=== PATIENT | male | born 1990 | race Caucasian/White ===

== ENCOUNTER 2017-05-09 19:48 | Emergency (ER) | payer BC ==
[2017-05-09] MEDS ORDERED: Amoxicillin 500 MG Cap PO ONE (20:15)
[2017-05-09] MEDS ORDERED: oxyCODONE ER 10 MG TAB.ER PO ONE (20:16)
[2017-05-09] MEDS ORDERED: Acetaminophen/oxyCODONE 325-5 MG Tab PO ONE (20:42)
--- NOTE | 2017-05-09 21:07 | EDM.PDOC ---
ED HPI GENERAL MEDICAL PROBLEM - General Chief Complaint: General Stated Complaint: TOOTHACHE Time Seen by Provider: 05/09/17 20:00 Source of Information: Reports: Patient, Family History Limitations: Reports: No Limitations - History of Present Illness INITIAL COMMENTS - FREE TEXT/NARRATIVE: Patient is a 26 year old man with a fractured abscessed left upper tooth for the last few months that over the weekend has become very sore and is causing swelling in the left sinus. No fever or chills and he has had this happen before with other teeth. He is scheduled to have the tooth pulled towards the end of this month. It does hurt a lot and he needs an antibiotic to treat the abscess. Onset: Gradual Duration: Week(s): (8), Getting Worse Location: Reports: Face (Left upper tooth is fractured and sore. 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 Pain Score (Numeric/FACES): 8 - Related Data Allergies Allergy/AdvReac Type Severity Reaction Status Date / Time clarithromycin [From Biaxin] Allergy Cannot Verified 07/29/14 15:55 Remember Home Meds: Home Meds Albuterol Sulfate [Albuterol Sulfate HFA] 2 puff Q4H PRN 07/29/14 [History] Amoxicillin 500 mg PO TID 10 Days #30 capsule 05/09/17 [Rx] Past Medical History Respiratory History: Reports: Asthma Gastrointestinal History: Reports: GERD Musculoskeletal History: Reports: Back Pain, Chronic Endocrine/Metabolic History: Reports: Obesity/BMI 30+ - Infectious Disease History Infectious Disease History: Reports: Chicken Pox, Shingles - Past Surgical History HEENT Surgical History: Reports: Myringotomy w Tube(s), Oral Surgery GI Surgical History: Reports: Hernia, Inguinal Other GI Surgeries/Procedures: L inguinal hernia repair Social & Family History - Family History Family Medical History: Noncontributory - Tobacco Use Smoking Status *Q: Current Every Day Smoker Years of Tobacco use: 14 Packs/Tins Daily: 0.5 - Caffeine Use Caffeine Use: Reports: Soda - Alcohol Use Days Per Week of Alcohol Use: 3 Number of Drinks Per Day: 10 Total Drinks Per Week: 30 - Recreational Drug Use Recreational Drug Use: Yes Drug Use in Last 12 Months: No Recreational Drug Type: Reports: Marijuana/Hashish Recreational Drug Use Frequency: Not Used In Over 6 Months ED ROS GENERAL - Review of Systems Review Of Systems: See Below Constitutional: Reports: Other (He is having a hard time sleeping due to pain.) HEENT: Reports: Sinus Problem, Other (Left upper tooth pain.) Respiratory: Reports: No Symptoms Cardiovascular: Reports: No Symptoms Endocrine: Reports: No Symptoms GI/Abdominal: Reports: No Symptoms : Reports: No Symptoms Musculoskeletal: Reports: No Symptoms Skin: Reports: No Symptoms Neurological: Reports: No Symptoms Psychiatric: Reports: No Symptoms ED EXAM, GENERAL - Physical Exam Exam: See Below Exam Limited By: No Limitations General Appearance: Alert Eye Exam: Bilateral Eye: EOMI, Normal Fundi, Normal Inspection, PERRL Ears: Normal External Exam Ear Exam: Bilateral Ear: Auricle Normal, Canal Normal, TM normal Nose: Normal Inspection, Normal Mucosa, No Blood Throat/Mouth: Other (Left upper tooth is broken and sore. ) Head: Facial Swelling (Over left maxillary sinus.) Neck: Normal Inspection, Supple, Non-Tender, Full Range of Motion Respiratory/Chest: No Respiratory Distress, Lungs Clear, Normal Breath Sounds, No Accessory Muscle Use, Chest Non-Tender Cardiovascular: Normal Peripheral Pulses, Regular Rate, Rhythm, No Edema, No Gallop, No JVD, No Murmur, No Rub GI/Abdominal: Normal Bowel Sounds, Soft, Non-Tender, No Organomegaly, No Distention, No Abnormal Bruit, No Mass Extremities: Normal Inspection, Normal Range of Motion, Non-Tender, Normal Capillary Refill, No Pedal Edema Neurological: Alert, Oriented, CN II-XII Intact, Normal Cognition, Normal Gait, Normal Reflexes, No Motor/Sensory Deficits Psychiatric: Normal Affect, Normal Mood Skin Exam: Warm, Dry, Intact, Normal Color, No Rash Course - Vital Signs Text/Narrative:: Patient had an uneventful ED course. He was given 2, 5/325 mg Percocet and 500 mg of Amoxicillin and he felt better. He will take Amoxicillin 500 mg po tid x 10 days, #30, Ibuprofen 800 mg po q 6 hours, Tylenol 500 mg po q 4 hours and will see his Dentist or Oral Surgeon JIM to get the abscessed tooth removed. Last Recorded V/S: Last Vital Signs Temp 36.5 C 05/09/17 19:51 Pulse 112 H 05/09/17 19:51 Resp 18 05/09/17 19:51 BP 142/93 H 05/09/17 19:51 Pulse Ox 99 05/09/17 19:51 - Orders/Labs/Meds Meds: Medications Discontinued Medications Generic Name Dose Route Start Last Admin Trade Name Maryam PRN Reason Stop Dose Admin Amoxicillin 500 mg 05/09/17 20:15 05/09/17 20:53 Amoxil PO 05/09/17 20:16 500 mg ONETIME ONE Administration Oxycodone HCl 10 mg 05/09/17 20:16 05/09/17 20:53 Oxycontin PO 05/09/17 20:17 Not Given ONETIME ONE Oxycodone/Acetaminophen 2 tab 05/09/17 20:42 05/09/17 20:52 Percocet 325-5 Mg PO 05/09/17 20:43 2 tab ONETIME ONE Administration Departure - Departure Time of Disposition: 21:12 Disposition: Home, Self-Care 01 Condition: Good Clinical Impression: Abscess of apex of dental root complicating chronic inflammation - Discharge Information Prescriptions: Amoxicillin 500 mg PO TID 10 Days #30 capsule Referrals: PCP,None [Primary Care Provider] -
[2017-05-09 21:25] VITALS: BP 134/78
== END 2017-05-09 21:15 | disposition home or self-care (01) ==
LOC: FB.ED 19:48
DX: K04.7 Periapical abscess without sinus (principal); E66.9 Obesity, unspecified; F17.210 Nicotine dependence, cigarettes, uncomplicated; Z88.8 Allergy status to other drugs, medicaments and biological substances
CPT/HCPCS: 99283; A9270

== ENCOUNTER 2018-07-31 00:12 | Emergency (ER) | payer BC ==
[2018-07-31] MEDS ORDERED: Ciprofloxacin 500 MG Tab PO ONE (00:30)
[2018-07-31] MEDS ORDERED: Ketorolac 60 MG/2 ML SDV IM ONE (00:30)
--- NOTE | 2018-07-31 00:36 | EDM.PDOC ---
ED HPI GENERAL MEDICAL PROBLEM - General Stated Complaint: EAR ACHE Time Seen by Provider: 07/31/18 00:15 Source of Information: Reports: Patient, Family History Limitations: Reports: No Limitations - History of Present Illness INITIAL COMMENTS - FREE TEXT/NARRATIVE: c/o right ear pain pt has had cold, cough and congestion for one wk, no f/c/d tonight he developed R ear pain 3 hours ago that has gotten worse, has pain when he touches ear had OM and tubes as a child not working today, here with sig other - Related Data Allergies Allergy/AdvReac Type Severity Reaction Status Date / Time clarithromycin [From Biaxin] Allergy Cannot Verified 07/31/18 00:31 Remember Home Meds: Home Meds Albuterol Sulfate [Albuterol Sulfate HFA] 2 puff Q4H PRN 07/29/14 [History] Amoxicillin 500 mg PO TID 10 Days #30 capsule 05/09/17 [Rx] Ciprofloxacin HCl [Cipro] 500 mg PO BID #14 tablet 07/31/18 [Rx] Hydrocort/Neomycin/Polymyxin B [Cortisporin Otic Soln] 10 ml .XX QID #1 bottle 07/31/18 [Rx] Past Medical History Respiratory History: Reports: Asthma Gastrointestinal History: Reports: GERD Musculoskeletal History: Reports: Back Pain, Chronic Endocrine/Metabolic History: Reports: Obesity/BMI 30+ - Infectious Disease History Infectious Disease History: Reports: Chicken Pox, Shingles - Past Surgical History HEENT Surgical History: Reports: Myringotomy w Tube(s), Oral Surgery GI Surgical History: Reports: Hernia, Inguinal Other GI Surgeries/Procedures: L inguinal hernia repair Social & Family History - Family History Family Medical History: Noncontributory - Caffeine Use Caffeine Use: Reports: Soda ED ROS ENT - Review of Systems Review Of Systems: See Below Constitutional: Reports: No Symptoms HEENT: Reports: Ear Pain, Rhinitis Respiratory: Reports: Cough Endocrine: Reports: No Symptoms GI/Abdominal: Reports: No Symptoms : Reports: No Symptoms Musculoskeletal: Reports: No Symptoms Skin: Reports: No Symptoms Neurological: Reports: No Symptoms Psychiatric: Reports: No Symptoms Hematologic/Lymphatic: Reports: No Symptoms Immunologic: Reports: No Symptoms ED EXAM, ENT - Physical Exam Exam: See Below Exam Limited By: No Limitations General Appearance: Alert, WD/WN, Mild Distress, Other (cooperative, nontoxic, leaning forward, appearing mildy uncomfortable) Eye Exam: Bilateral Eye: Conjunctival Injection Ears: Other (TMs wnl b/l, 60% swell of R ear canal inferiorly without exudate or red, mild tender on tug pinna and tragus on R, no LNs b/l) Nose: Other (30% swell b/l with 1+ clear d/c b/l) Mouth/Throat: Normal Inspection, Normal Gums, Normal Lips, Normal Oropharynx, Normal Teeth Head: Atraumatic, Normocephalic Neck: Normal Inspection, Supple, Non-Tender, Full Range of Motion. No: Lymphadenopathy (R), Lymphadenopathy (L) Respiratory/Chest: No Respiratory Distress, Lungs Clear, Normal Breath Sounds, No Accessory Muscle Use, Chest Non-Tender Cardiovascular: Regular Rate, Rhythm, No Edema, No Murmur Extremities: Normal Inspection, Normal Range of Motion, Non-Tender, No Pedal Edema Neurological: Alert, Oriented, CN II-XII Intact, Normal Cognition Psychiatric: Normal Affect Skin: Warm, Dry, Intact, Normal Color, No Rash Lymphatic: No Adenopathy Course - Orders/Labs/Meds Orders: Active Orders 24 hr Category Date Time Status Ciprofloxacin [Ciprofloxacin HCl] Med 07/31/18 00:30 Once 500 mg PO ONETIME ONE Ketorolac [Toradol] Med 07/31/18 00:30 Once 60 mg IM ONETIME ONE Departure - Departure Time of Disposition: 00:31 Disposition: Home, Self-Care 01 Condition: Good Clinical Impression: Otitis externa - Discharge Information *PRESCRIPTION DRUG MONITORING PROGRAM REVIEWED*: Not Applicable *COPY OF PRESCRIPTION DRUG MONITORING REPORT IN PATIENT BERTIN: Not Applicable Prescriptions: Ciprofloxacin HCl [Cipro] 500 mg PO BID #14 tablet Hydrocort/Neomycin/Polymyxin B [Cortisporin Otic Soln] 10 ml .XX QID #1 bottle Instructions: Otitis Externa Referrals: PCP,None [Primary Care Provider] - Additional Instructions: For infection, take ciprofloxacin 500 mg 1 tab 2 times a day for 7 days. For infection, take Cortisporin Otic Solution 3 drops in right ear canal 4 times a day for 7 days. For pain, take ibuprofen 200 mg 3 tabs and acetaminophen 500 mg 2 tabs 4 times a day for 1-2 days, longer if needed. For pain, may use 3 drops of ice water in the right ear canal every hour as needed. If feeling better, see your doctor in one week. If not feeling much better in 2 days, see your doctor or return to ED. Call your Physician or Return to Emergency Department if: * Your condition worsens in any way. * You develop fever greater than 100.4. * You have vomitting that does not stop with medications. * You have pain that is not controlled with medications. - My Orders Last 24 Hours: My Active Orders 07/31/18 00:30 Ciprofloxacin [Ciprofloxacin HCl] 500 mg PO ONETIME ONE Ketorolac [Toradol] 60 mg IM ONETIME ONE - Assessment/Plan Last 24 Hours: My Active Orders 07/31/18 00:30 Ciprofloxacin [Ciprofloxacin HCl] 500 mg PO ONETIME ONE Ketorolac [Toradol] 60 mg IM ONETIME ONE
[2018-07-31 02:15] VITALS: BP 133/87
== END 2018-07-31 00:55 | disposition home or self-care (01) ==
LOC: FB.ED 00:12
DX: H60.91 Unspecified otitis externa, right ear (principal); J45.909 Unspecified asthma, uncomplicated; K21.9 Gastro-esophageal reflux disease without esophagitis; Z79.899 Other long term (current) drug therapy; Z88.1 Allergy status to other antibiotic agents
CPT/HCPCS: 96372; 99282; A9270; J1885

== ENCOUNTER 2019-11-20 04:19 | Emergency (ER) | payer BC ==
[2019-11-20] MEDS ORDERED: Ketorolac 30 MG/ML SDV IVPUSH ONE (05:13)
[2019-11-20] MEDS ORDERED: Sodium Chloride 0.9% 1,000 ML IV ONE (05:13)
--- NOTE | 2019-11-20 05:16 | EDM.PDOC ---
ED HPI GENERAL MEDICAL PROBLEM - General Chief Complaint: Abdominal Pain Stated Complaint: ABDOMINAL PAIN Time Seen by Provider: 11/20/19 04:35 Source of Information: Reports: Patient History Limitations: Reports: No Limitations - History of Present Illness INITIAL COMMENTS - FREE TEXT/NARRATIVE: c/o pain and RUQ x 8h pt bought oil and drenched his vegetables with it last night, at 8p he had pain in his RUQ that has continued not much help from APAP and ibuprofen pain 4/10 when sitting, increase to 8-9/10 when he takes a deep breath or twists has developed pain in his R shoulder as well no n/v, no f/c/d lost his job 2w ago, no alc however, smokes THC daily only med is alb hfa which he has run out off he had one GB attack several years ago, given pain meds in ED and pain went away and never had a reoccurrence until now he indicates pain is localized at Gavin's point, says it hurts when he presses there has a 5 month old child no prior abd surgery 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 11/20/19 [Rx] Past Medical History Respiratory History: Reports: Asthma, Sleep Apnea Gastrointestinal History: Reports: GERD Musculoskeletal History: Reports: Back Pain, Chronic Psychiatric History: Reports: Anxiety, Depression Endocrine/Metabolic History: Reports: Obesity/BMI 30+ - Infectious Disease History Infectious Disease History: Reports: Chicken Pox - Past Surgical History HEENT Surgical History: Reports: Myringotomy w Tube(s), Oral Surgery GI Surgical History: Reports: Hernia, Inguinal Other GI Surgeries/Procedures: L inguinal hernia repair Social & Family History - Family History Family Medical History: Noncontributory - Tobacco Use Smoking Status *Q: Current Every Day Smoker Years of Tobacco use: 16 Packs/Tins Daily: 0.5 - Caffeine Use Caffeine Use: Reports: Soda - Recreational Drug Use Recreational Drug Use: Yes Recreational Drug Type: Reports: Marijuana/Hashish Recreational Drug Use Frequency: Daily ED ROS GENERAL - Review of Systems Review Of Systems: See Below Constitutional: Reports: No Symptoms HEENT: Reports: No Symptoms Respiratory: Reports: No Symptoms Cardiovascular: Reports: No Symptoms Endocrine: Reports: No Symptoms GI/Abdominal: Reports: Abdominal Pain. Denies: Constipation, Diarrhea, Nausea, Vomiting : Reports: No Symptoms Musculoskeletal: Reports: No Symptoms Skin: Reports: No Symptoms Neurological: Reports: No Symptoms Psychiatric: Reports: No Symptoms Hematologic/Lymphatic: Reports: No Symptoms Immunologic: Reports: No Symptoms ED EXAM, GENERAL - Physical Exam Exam: See Below Exam Limited By: No Limitations General Appearance: Alert, WD/WN, No Apparent Distress Nose: Normal Inspection, Normal Mucosa, No Blood Throat/Mouth: Normal Inspection, Normal Lips, No Airway Compromise Head: Atraumatic, Normocephalic Neck: Normal Inspection, Supple, Non-Tender, Full Range of Motion Respiratory/Chest: No Respiratory Distress, Lungs Clear, Normal Breath Sounds, No Accessory Muscle Use, Chest Non-Tender Cardiovascular: Regular Rate, Rhythm, No Edema, No Gallop, No Murmur, No Rub GI/Abdominal: Normal Bowel Sounds, Soft, No Distention, Other (1-2+ tender at Gavin's point, on palpating epigastrium there is tenderness at Gavin's point, takes shallow breaths to prevent pain in RUQ) Back Exam: Normal Inspection, Full Range of Motion. No: CVA Tenderness (R), CVA Tenderness (L) Extremities: Normal Inspection, Normal Range of Motion, Non-Tender, No Pedal Edema Neurological: Alert, Oriented, CN II-XII Intact, Normal Cognition, No Motor/Sensory Deficits Psychiatric: Normal Affect Skin Exam: Warm, Dry, Intact, Normal Color, No Rash Lymphatic: No Adenopathy Course - Vital Signs Last Recorded V/S: Last Vital Signs Temp 36.7 C 11/20/19 04:25 Pulse 71 11/20/19 04:25 Resp 18 11/20/19 04:25 BP 152/79 H 11/20/19 04:25 Pulse Ox 99 11/20/19 04:25 - Orders/Labs/Meds Orders: Active Orders 24 hr Category Date Time Status Abdomen Pelvis w Cont [CT] Stat Exams 11/20/19 05:10 Ordered Labs: Laboratory Tests 11/20/19 11/20/19 11/20/19 Range/Units 05:20 05:30 05:30 WBC 10.9 (4.5-12.0) X10-3/uL RBC 5.14 (4.30-5.75) x10(6)uL Hgb 15.2 (13.5-17.8) g/dL Hct 45.5 (30.0-51.3) % MCV 88.5 (80-96) fL MCH 29.5 (27.7-33.6) pg MCHC 33.4 (32.2-35.4) g/dL RDW 11.8 (11.5-15.5) % Plt Count 200 (125-369) X10(3)uL MPV 8.4 (7.4-10.4) fL Neut % (Auto) 57.3 (46-82) % Lymph % (Auto) 31.6 (13-37) % [place] % (Auto) 8.2 (4-12) % Eos % (Auto) 2 (1.0-5.0) % Baso % (Auto) 1 (0-2) % Neut # (Auto) 6.1 (1.6-8.3) # Lymph # (Auto) 3.5 (0.6-5.0) # Oxford # (Auto) 0.9 (0.0-1.3) # Eos # (Auto) 0.3 (0.0-0.8) # Baso # (Auto) 0.1 (0.0-0.2) # Sodium 139 (135-145) mmol/L Potassium 3.9 (3.5-5.3) mmol/L Chloride 103 (100-110) mmol/L Carbon Dioxide 29 (21-32) mmol/L BUN 17 (7-18) mg/dL Creatinine 0.9 (0.70-1.30) mg/dL Est Cr Clr Drug Dosing 143.44 mL/min Estimated GFR (MDRD) > 60 (>60) BUN/Creatinine Ratio 18.9 (9-20) Glucose 110 (80-116) mg/dL Calcium 8.8 (8.6-10.2) mg/dL Total Bilirubin 0.5 (0.1-1.3) mg/dL AST 17 (5-25) IU/L ALT 25 (12-36) U/L Alkaline Phosphatase 100 (56-112) IU/L C-Reactive Protein (0.5-0.9) mg/dL Total Protein 7.5 (6.0-8.0) g/dL Albumin 4.0 (3.5-5.2) g/dL Globulin 3.5 g/dL Albumin/Globulin Ratio 1.1 Lipase (73-393) U/L Urine Color Yellow (YELLOW) Urine Appearance Clear (CLEAR) Urine pH 5.0 (5.0-6.5) Ur Specific Mena 1.020 (1.010-1.025) Urine Protein Negative (NEGATIVE) mg/dL Urine Glucose (UA) Normal (NORMAL) mg/dL Urine Ketones Negative (NEGATIVE) mg/dL Urine Occult Blood Negative (NEGATIVE) Urine Nitrite Negative (NEGATIVE) Urine Bilirubin Negative (NEGATIVE) Urine Urobilinogen Normal (NEGATIVE) mg/dL Ur Leukocyte Esterase Negative (NEGATIVE) Urine RBC 0-5 (0-5) Urine WBC 0-5 (0-5) Ur Squamous Epith Cells Rare (NS,R,O) Urine Bacteria Rare H (NS) 11/20/19 Range/Units 05:30 WBC (4.5-12.0) X10-3/uL RBC (4.30-5.75) x10(6)uL Hgb (13.5-17.8) g/dL Hct (30.0-51.3) % MCV (80-96) fL MCH (27.7-33.6) pg MCHC (32.2-35.4) g/dL RDW (11.5-15.5) % Plt Count (125-369) X10(3)uL MPV (7.4-10.4) fL Neut % (Auto) (46-82) % Lymph % (Auto) (13-37) % Oxford % (Auto) (4-12) % Eos % (Auto) (1.0-5.0) % Baso % (Auto) (0-2) % Neut # (Auto) (1.6-8.3) # Lymph # (Auto) (0.6-5.0) # Oxford # (Auto) (0.0-1.3) # Eos # (Auto) (0.0-0.8) # Baso # (Auto) (0.0-0.2) # Sodium (135-145) mmol/L Potassium (3.5-5.3) mmol/L Chloride (100-110) mmol/L Carbon Dioxide (21-32) mmol/L BUN (7-18) mg/dL Creatinine (0.70-1.30) mg/dL Est Cr Clr Drug Dosing mL/min Estimated GFR (MDRD) (>60) BUN/Creatinine Ratio (9-20) Glucose (80-116) mg/dL Calcium (8.6-10.2) mg/dL Total Bilirubin (0.1-1.3) mg/dL AST (5-25) IU/L ALT (12-36) U/L Alkaline Phosphatase (56-112) IU/L C-Reactive Protein 0.7 (0.5-0.9) mg/dL Total Protein (6.0-8.0) g/dL Albumin (3.5-5.2) g/dL Globulin g/dL Albumin/Globulin Ratio Lipase 70 L (73-393) U/L Urine Color (YELLOW) Urine Appearance (CLEAR) Urine pH (5.0-6.5) Ur Specific Mena (1.010-1.025) Urine Protein (NEGATIVE) mg/dL Urine Glucose (UA) (NORMAL) mg/dL Urine Ketones (NEGATIVE) mg/dL Urine Occult Blood (NEGATIVE) Urine Nitrite (NEGATIVE) Urine Bilirubin (NEGATIVE) Urine Urobilinogen (NEGATIVE) mg/dL Ur Leukocyte Esterase (NEGATIVE) Urine RBC (0-5) Urine WBC (0-5) Ur Squamous Epith Cells (NS,R,O) Urine Bacteria (NS) Meds: Medications Discontinued Medications Generic Name Dose Route Start Last Admin Trade Name Freq PRN Reason Stop Dose Admin Al Hydroxide/Mg Hydroxide 30 0 ml 11/20/19 06:43 11/20/19 06:47 ml/ Lidocaine HCl 15 ml PO 11/20/19 06:44 30 ml ONETIME ONE Administration Diphenhydramine HCl 50 mg 11/20/19 05:53 11/20/19 05:57 Benadryl IVPUSH 11/20/19 05:54 50 mg ONETIME ONE Administration Hydromorphone HCl 2 mg 11/20/19 06:34 Dilaudid IVPUSH 11/20/19 06:35 ONETIME ONE Sodium Chloride 1,000 mls @ 999 mls/hr 11/20/19 05:13 11/20/19 05:27 Normal Saline IV 11/20/19 06:13 999 mls/hr .BOLUS ONE Administration Iopamidol 100 ml 11/20/19 05:39 11/20/19 06:09 Isovue-370 (76%) IV 11/20/19 05:40 100 ml . DIRECTED ONE Administration Ketorolac Tromethamine 30 mg 11/20/19 05:13 11/20/19 05:28 Toradol IVPUSH 11/20/19 05:14 30 mg ONETIME ONE Administration Ondansetron HCl 4 mg 11/20/19 06:34 11/20/19 06:40 Zofran IVPUSH 11/20/19 06:35 4 mg ONETIME ONE Administration - Re-Assessments/Exams Free Text/Narrative Re-Assessment/Exam: 11/20/19 07:23 CT with 9.7 mm appendix without stranding in usual position, pt remains completely nontender in lower quadrants. There is still mild epigastric tender and almost no tender at Gavin's point after GI cocktail. Pt fell sound asleep twice. d/w Dr Armenta who said that surgery f/u was elective and that pt should be seen back in the ED only if pain returned. pt had been reading extensively on the internet regarding biliary colic which appeared to have colored his symptoms and presentation Departure - Departure Time of Disposition: 07:14 Disposition: Home, Self-Care 01 Condition: Good Clinical Impression: Gastritis - Discharge Information *PRESCRIPTION DRUG MONITORING PROGRAM REVIEWED*: Not Applicable *COPY OF PRESCRIPTION DRUG MONITORING REPORT IN PATIENT BERTIN: Not Applicable Prescriptions: Omeprazole 20 mg PO DAILY #14 tablet. Instructions: Gastritis, Adult Referrals: Maude Collins NP [Primary Care Provider] - Forms: ED Department Discharge Additional Instructions: Your gallbladder is normal on the CT scan without evidence of enlargement or stones. Your appendix is 9.7 mm in diameter, which is large although within the normal range. There is no evidence of infection or inflammation of the appendix. For pain, take acetaminophen 500 mg 2 tabs 4 times a day for 2 days, longer if needed. For pain, use moist heat in shower or tub for 10 minutes every 2 hours as needed. To decrease acid production, take omeprazole 20 mg 1 tab daily for 14 days. To neutralize acid, take liquid antacid 30 ml (2 tablespoons) every 3-4 hours for 2 days, then continue as needed. Avoid fatty foods, which stimulate acid production, for 2 days. Limit meats and protein. May eat carbohydrates. See your doctor in the next 2 days for further recommendations and evaluation. If you have worsening pain or develop a fever or other new symptoms, return to the Emergency Department. Sepsis Event Note (ED) - Evaluation Sepsis Screening Result: No Definite Risk - Focused Exam Vital Signs: Vital Signs Temp Pulse Resp BP Pulse Ox 11/20/19 04:25 36.7 C 71 18 152/79 H 99 - My Orders Last 24 Hours: My Active Orders 11/20/19 05:10 Abdomen Pelvis w Cont [CT] Stat - Assessment/Plan Last 24 Hours: My Active Orders 11/20/19 05:10 Abdomen Pelvis w Cont [CT] Stat
[2019-11-20] MEDS ORDERED: Iopamidol 755 Mg/ML 100 ML Bottle IV ONE (05:39)
[2019-11-20] MEDS ORDERED: diphenhydrAMINE 50 MG/ML SDV IVPUSH ONE (05:53)
[2019-11-20] MEDS ORDERED: Ondansetron 4 MG/2 ML SDV IVPUSH ONE (06:34)
[2019-11-20] MEDS ORDERED: HYDROmorphone 2 MG/ML SDV IVPUSH ONE (06:34)
[2019-11-20] MEDS ORDERED: Alum Hydroxide/Mag Hydroxide 30 ML, Lidocaine 2% 15 ML PO ONE ×2 (06:43)
[2019-11-20 07:50] VITALS: BP 110/69; PULSE 83
== END 2019-11-20 07:49 | disposition home or self-care (01) ==
LOC: FB.ED 04:19
DX: K29.70 Gastritis, unspecified, without bleeding (principal); K21.9 Gastro-esophageal reflux disease without esophagitis; E66.9 Obesity, unspecified; Z68.33 Body mass index [BMI] 33.0-33.9, adult; F17.210 Nicotine dependence, cigarettes, uncomplicated; Z88.1 Allergy status to other antibiotic agents; Z79.899 Other long term (current) drug therapy
CPT/HCPCS: 36415; 74177; 80053; 81001; 83690; 85025; 86140; 96361; 96374; 96375; 99284-25; A9270-GY; J1200; J1885; J2405; J7030; Q9967

== ENCOUNTER 2019-11-24 04:39 | Emergency (ER) | payer BC ==
--- NOTE | 2019-11-24 05:06 | EDM.PDOC ---
ED HPI GENERAL MEDICAL PROBLEM - General Stated Complaint: SOB; WHEEZY Time Seen by Provider: 11/24/19 05:00 Source of Information: Reports: Patient History Limitations: Reports: No Limitations - History of Present Illness INITIAL COMMENTS - FREE TEXT/NARRATIVE: 29-year-old male with history of asthma who reports beginning 2 nights ago he developed wheezing and difficulty breathing. He has a cough that is nonproductive. He has had sneezing with some clear discharge from his nose. He has had no fevers or chills. No nausea or vomiting. He was seen here 3 days ago for pain in his right upper quadrant that he reports is still there and he rates the pain as a 5/10. He had a negative workup at that time. He has been eating and drinking normally and he has had no nausea or vomiting. The primary compla int today is shortness of breath and he feels that that is worsening with time. He has been on albuterol and Symbicort inhalers in the past but he is out of both of these medications. He reports that he has been eating and drinking normally. No weakness or dizziness. He states that he has been tested for Covid about a month ago and it was negative. There are no other associated signs or symptoms. There are no other modifying factors. Onset: Other (2 days ago) Duration: Getting Worse Location: Reports: Other (No pain associated with this shortness of breath. He does have abdominal pain as mentioned above.) Quality: Reports: Sharp Severity: Moderate Improves with: Reports: Rest Worsens with: Reports: Other (Palpation), Movement Context: Reports: Other (As above) Associated Symptoms: Reports: Cough, Shortness of Breath, Other (As above) Treatments EXTRUSION MANAGER: Reports: Other (see below) (Nothing) - Related Data Allergies Allergy/AdvReac Type Severity Reaction Status Date / Time clarithromycin [From Biaxin] Allergy Cannot Verified 11/20/19 04:30 Remember Home Meds: Home Meds Albuterol Sulfate [Albuterol Sulfate HFA] 2 puff INH Q4H PRN 07/29/14 [History] Omeprazole 20 mg PO DAILY #14 tablet. 11/20/19 [Rx] Albuterol Sulfate [Albuterol Sulfate Hfa] 2 - 4 puff IH Q4H PRN #1 hfa.aer.ad 11/24/19 [Rx] Doxycycline Monohydrate 100 mg PO BID 7 Days #14 tablet 11/24/19 [Rx] predniSONE [Prednisone] 60 mg PO DAILY 5 Days #15 tablet 11/24/19 [Rx] Past Medical History Respiratory History: Reports: Asthma, Sleep Apnea Gastrointestinal History: Reports: GERD Musculoskeletal History: Reports: Back Pain, Chronic Psychiatric History: Reports: Anxiety, Depression Endocrine/Metabolic History: Reports: Obesity/BMI 30+ - Infectious Disease History Infectious Disease History: Reports: Chicken Pox - Past Surgical History HEENT Surgical History: Reports: Myringotomy w Tube(s), Oral Surgery GI Surgical History: Reports: Hernia, Inguinal Other GI Surgeries/Procedures: L inguinal hernia repair Social & Family History - Tobacco Use Smoking Status *Q: Former Smoker (Nonsmoker 3 weeks.) - Caffeine Use Caffeine Use: Reports: Soda - Alcohol Use Alcohol Use History: Yes Alcohol Use Frequency: Rarely - Living Situation & Occupation Living situation: Reports: Occupation: Unemployed ED ROS GENERAL - Review of Systems Review Of Systems: See Below Constitutional: Reports: No Symptoms HEENT: Reports: Other (Nasal congestion. Sneezing.) Respiratory: Reports: Shortness of Breath, Wheezing, Cough Cardiovascular: Reports: No Symptoms GI/Abdominal: Reports: Abdominal Pain (Right upper quadrant and epigastric). Denies: Nausea, Vomiting : Reports: No Symptoms Musculoskeletal: Reports: No Symptoms Skin: Reports: No Symptoms Neurological: Reports: No Symptoms Psychiatric: Reports: No Symptoms Hematologic/Lymphatic: Reports: No Symptoms Immunologic: Reports: No Symptoms ED EXAM, GENERAL - Physical Exam Exam: See Below Exam Limited By: No Limitations General Appearance: Alert, WD/WN, Moderate Distress Eye Exam: Bilateral Eye: EOMI, Normal Inspection, PERRL Ears: Normal External Exam, Hearing Grossly Normal Ear Exam: Bilateral Ear: Auricle Normal Nose: Normal Inspection, Normal Mucosa, No Blood Throat/Mouth: Normal Inspection, Normal Oropharynx, Normal Voice, No Airway Compromise Head: Atraumatic, Normocephalic Neck: Normal Inspection, Supple, Non-Tender, Full Range of Motion Respiratory/Chest: No Respiratory Distress, No Accessory Muscle Use, Chest Non- Tender, Wheezing, Prolonged Expiration Cardiovascular: Normal Peripheral Pulses, Regular Rate, Rhythm, No JVD Peripheral Pulses: 2+: Radial (L), Radial (R), Dorsalis Pedis (L), Dorsalis Pedis (R) GI/Abdominal: Normal Bowel Sounds, Soft, Non-Tender, No Mass Back Exam: Normal Inspection, Full Range of Motion Extremities: Normal Inspection, Normal Range of Motion, Non-Tender, No Pedal Edema, Normal Capillary Refill Neurological: Alert, Oriented, CN II-XII Intact, Normal Cognition, No Motor/Sensory Deficits Skin Exam: Warm, Dry, Intact, Normal Color, No Rash Course - Orders/Labs/Meds Orders: Active Orders 24 hr Category Date Time Status RT Aerosol Therapy [RC] ASDIRECTED Care 11/24/19 05:18 Active Meds: Medications Discontinued Medications Generic Name Dose Route Start Last Admin Trade Name Freq PRN Reason Stop Dose Admin Albuterol 2.5 mg 11/24/19 05:17 11/24/19 05:47 Proventil Neb Soln NEB 11/24/19 05:18 2.5 mg ONETIME ONE Administration Albuterol/Ipratropium 3 ml 11/24/19 05:17 11/24/19 06:00 Duoneb 3.0-0.5 Mg/3 Ml NEB 11/24/19 05:18 3 ml ONETIME ONE Administration Albuterol/Ipratropium Confirm 11/24/19 05:51 11/24/19 06:00 Duoneb 3.0-0.5 Mg/3 Ml Administered 11/24/19 05:52 Not Given Dose 3 ml .ROUTE .STK-MED ONE Prednisone 60 mg 11/24/19 05:17 11/24/19 05:47 Prednisone PO 11/24/19 05:18 60 mg ONETIME ONE Administration - Radiology Interpretation Free Text/Narrative:: Chest x-ray PA and lateral shows no acute disease. - Re-Assessments/Exams Free Text/Narrative Re-Assessment/Exam: 11/24/19 06:10: Patient received a DuoNeb/albuterol neb combination and he feels much improved after this. His air movement is much improved and his wheezing has essentially resolved. His chest x-ray showed no acute abnormality. He appears to have an acute exacerbation of his asthma and he reports that it needs to be related to allergy type symptoms. I did discuss the possibility of coronavirus infection and he reports that he has had several tests have been negative I posed genitalis now but he refused this test. I will plan on discharging the patient with an albuterol inhaler with spacer and prednisone for the next 5 days. I'll also give the patient doxycycline 100 mg twice a day for the next 7 days. Departure - Departure Time of Disposition: 06:25 Disposition: Home, Self-Care 01 Condition: Good (Improved) Clinical Impression: Acute exacerbation of extrinsic asthma URI (upper respiratory infection) Qualifiers: URI type: unspecified URI Qualified Code(s): J06.9 - Acute upper respiratory infection, unspecified - Discharge Information Prescriptions: Albuterol Sulfate [Albuterol Sulfate Hfa] 2 - 4 puff IH Q4H PRN #1 hfa.aer.ad PRN Reason: Wheezing/difficulty breathing Doxycycline Monohydrate 100 mg PO BID 7 Days #14 tablet predniSONE [Prednisone] 60 mg PO DAILY 5 Days #15 tablet Instructions: How to Use a Metered Dose Inhaler, Upper Respiratory Infection, Adult, [id number], Asthma, Adult, [id number] Referrals: Maude Collins TIMBER WATCHMAN [Primary Care Provider] - Forms: ED Department Discharge Additional Instructions: Your chest x-ray showed no evidence of pneumonia. You improve significantly after the nebulizer treatment. Should use the albuterol inhaler as needed. Me dication as prescribed (albuterol inhaler, prednisone, doxycycline 100 mg). Use the spacer that we've provided you with the albuterol inhaler to help make it effective. I am placing you on antibiotics to treat for a possible infection associated with your asthma exacerbation. You should work or take probiotics daily while you are on the antibiotics. Drink plenty of fluids. Back to the emergency department for worse breathing, unrelenting vomiting or any other concerning sign or symptom. - My Orders Last 24 Hours: My Active Orders 11/24/19 05:18 RT Aerosol Therapy [RC] ASDIRECTED - Assessment/Plan Last 24 Hours: My Active Orders 11/24/19 05:18 RT Aerosol Therapy [RC] ASDIRECTED
[2019-11-24] MEDS ORDERED: Albuterol 0.083% 2.5 MG/3 ML Neb Soln NEB ONE (05:17)
[2019-11-24] MEDS ORDERED: Albuterol/Ipratropium 3.0-0.5 MG/3 ML Neb Soln NEB ONE (05:17)
[2019-11-24] MEDS ORDERED: predniSONE 20 MG Tab PO ONE (05:17)
[2019-11-24] MEDS ORDERED: Albuterol/Ipratropium 3.0-0.5 MG/3 ML Neb Soln ONE (05:51)
--- NOTE | 2019-11-24 10:20 | CR ---
INDICATION: Wheezing, shortness of breath. CHEST, TWO VIEWS: PA and lateral views of the chest were obtained 11/24/19 and compared with 05/15/19 revealing infrahilar markings on the right to be prominent as previously and of questionable significance, possibly related to minimal patchy pneumonia in that area but unchanged from the previous study. There also appear to be slightly heavier markings suprahilar bilaterally compared with previous study which could also be on the basis of minimal patchy infiltrates in those areas. Depending upon clinical correlation, additional examinations such as CT of the chest may be helpful. However, no consolidating pneumonia or effusion was identified. Somewhat prominent AP diameter and slightly increased flattening of diaphragm leads raises question of obstructive airway disease. This should be correlated clinically. A minimal dextroconcave scoliosis is again noted in the upper thoracic spine. The heart and mediastinum are unremarkable. IMPRESSION: 1. Question possibility of obstructive airway disease - correlate clinically. 2. Minimal patchy infiltration suprahilar bilaterally and infrahilar on the right could be present - correlate clinically as to necessity for additional examination such as CT of the chest. MTDD
== END 2019-11-24 06:30 | disposition home or self-care (01) ==
LOC: FB.ED 04:39
DX: J45.901 Unspecified asthma with (acute) exacerbation (principal); J06.9 Acute upper respiratory infection, unspecified; K21.9 Gastro-esophageal reflux disease without esophagitis; E66.9 Obesity, unspecified; Z87.891 Personal history of nicotine dependence; Z88.1 Allergy status to other antibiotic agents; Z79.899 Other long term (current) drug therapy
CPT/HCPCS: 71046; 94640; 99285; J7512; J7620-GY